=== PATIENT | female | born 1990 | race Caucasian/White ===

== ENCOUNTER 2017-04-22 15:07 | Emergency (ER) | payer OTHER ==
[2017-04-22] MEDS: LIDOCAINE/MYLANTA 40 ML BTL PO (16:45)
[2017-04-22] MEDS: BELLADONNA/PHENOBARBITAL TAB PO (16:45)
== END 2017-04-22 18:30 | disposition home or self-care (01) ==
LOC: FTE 15:07
DX: K29.70 Gastritis, unspecified, without bleeding (principal)
CPT/HCPCS: 99283; Z7502

== ENCOUNTER 2017-06-16 00:25 | Emergency (ER) | payer OTHER ==
[2017-06-16] MEDS: KETOROLAC 60 MG INJ IM (03:37)
== END 2017-06-16 05:47 | disposition home or self-care (01) ==
LOC: E/R 00:25
DX: M94.0 Chondrocostal junction syndrome [Tietze] (principal)
CPT/HCPCS: 71045; 93005; 96372; 99284-25

== ENCOUNTER 2017-07-31 18:20 | Emergency (ER) | payer OTHER | END 2017-07-31 18:58 | disposition home or self-care (01) | LOC: E/R 18:20 | DX: J20.9 Acute bronchitis, unspecified (principal) | CPT/HCPCS: 99284; Z7502 ==

== ENCOUNTER 2017-08-07 17:23 | Emergency (ER) | payer OTHER | END 2017-08-07 19:50 | disposition home or self-care (01) | LOC: E/R 17:23 | DX: S60.221A Contusion of right hand, initial encounter (principal); W22.01XA Walked into wall, initial encounter; Y92.9 Unspecified place or not applicable | CPT/HCPCS: 29125; 73130-RT; 99283-25 ==

== ENCOUNTER 2017-11-02 21:48 | Emergency (ER) | payer OTHER | END 2017-11-02 23:44 | disposition home or self-care (01) | LOC: FTE 21:48 | DX: H66.92 Otitis media, unspecified, left ear (principal) | CPT/HCPCS: 99284 ==

== ENCOUNTER 2018-04-21 15:04 | Emergency (ER) | payer OTHER | END 2018-04-21 19:25 | disposition home or self-care (01) | LOC: FTE 15:04 | DX: K64.8 Other hemorrhoids (principal) | CPT/HCPCS: 99282; Z7502 ==